=== PATIENT | female | born 1980 | race Caucasian/White ===

== ENCOUNTER 2016-03-22 19:42 | Emergency (ER) | payer BC ==
[2016-03-22 19:48] VITALS: BP 152/88; PULSE 100; RESP 20; TEMP 97.9
--- NOTE | 2016-03-22 20:03 | ED ---
Extremity Problem HPI - General Chief complaint: Extremity Problem,Nontraumatic Stated complaint: left arm pain and swelling Time Seen by Provider: 03/22/16 19:50 Source: patient, RN notes reviewed Mode of arrival: ambulatory Limitations: no limitations - History of Present Illness Initial comments: 35 yo female presents to the emergency department with a chief complaint of left arm swelling. Patient states that this started about 3 weeks ago. She initially saw Dr. french some lymph nodes swollen neck and started on antibiotics. Patient states her swelling has remained constant since then. There is not. The improvement. Patient stated was a throbbing type pain along the arm as well as what she was concerned. Patient states there is no trauma or injury to the arm. Patient states that she is not currently having any other symptoms.Patient denies any recent fever, chills, shortness of breath, chest pain, back pain, abdominal pain, nausea vomiting, numbness or tingling, dysuria or hematuria, constipation or diarrhea, headaches or visual changes, or any other current symptoms. - Related Data Home Medications Medication Instructions Recorded Confirmed No Known Home Medications [No 03/22/16 03/22/16 Known Home Medications] Allergies Allergy/AdvReac Type Severity Reaction Status Date / Time No Known Allergies Allergy Verified 03/22/16 19:48 Review of Systems ROS Statement: Those systems with pertinent positive or pertinent negative responses have been documented in the HPI. ROS Other: All systems not noted in ROS Statement are negative. Past Medical History Past Medical History: No Reported History History of Any Multi-Drug Resistant Organisms: None Reported Past Surgical History: Section, Tubal Ligation Past Psychological History: No Psychological Hx Reported Smoking Status: Never smoker Past Alcohol Use History: None Reported Past Drug Use History: None Reported General Exam - General Exam Comments Initial Comments: General: The patient is awake and alert, in no distress, and does not appear acutely ill. Neck: The neck is supple, there is no tenderness. Cardiovascular: There is a regular rate and rhythm. No murmur, rub or gallop is appreciated. Respiratory: Lungs are clear to auscultation, respirations are non-labored, breath sounds are equal. No wheezes, stridor, rales, or rhonchi. Musculoskeletal: Sensation intact with 2+ pulses of left upper joint. Full range of Motion of left hand left elbow and left shoulder. No redness or erythema. No pedal edema. Tenderness to deep palpation. No lymph nodes palpated. Neurological: CN II-XII intact, There are no obvious motor or sensory deficits. Coordination appears grossly intact. Speech is normal. Skin: Skin is warm and dry and no rashes or lesions are noted. Psychiatric: Normal mood and affect. Limitations: no limitations Course Vital Signs 03/22/16 19:44 Temperature 97.9 F Pulse Rate 100 Respiratory 20 Rate Blood Pressure 152/88 O2 Sat by Pulse 100 Oximetry Medical Decision Making - Medical Decision Making 35-year-old female presents emergency Department chief complaint swelling to left upper extremity. This time patient's ultrasound and she did not shows no sign of deep vein thrombosis. This and we discussed continue follow-up with her doctor out patiently. We discussed return parameters all patient's questions. She states she understood. Patient will be discharged home. Disposition Clinical Impression: Left arm swelling Disposition: HOME SELF-CARE Condition: Stable Instructions: Arthralgia (ED) Additional Instructions: Please use medication as discussed. Please follow up with family doctor if symptoms have not improved over the next two days. Please return to the emergency room if your symptoms increase or worsen or for any other concerns. Referrals: Shanti Bennett DO [Primary Care Provider] - 1-2 days Time of Disposition: 22:10
--- NOTE | 2016-03-22 22:08 | US ---
EXAMINATION TYPE: US venous doppler duplex UE LT DATE OF EXAM: 03/22/2016 9:59 PM COMPARISON: NONE CLINICAL HISTORY: left upper arm pain, swelling, no hx of blood clots, no on any blood thinners. SIDE PERFORMED: Left TECHNOLOGIST IMPRESSION: Left Arm: Appears negative for DVT There is patency demonstrated in the left subclavian axillary brachial basilic and cephalic veins. IMPRESSION: Normal exam. No evidence of deep venous thrombosis in the left arm.
== END 2016-03-22 22:20 | disposition home or self-care (01) ==
LOC: EC 19:42
DX: M79.89 Other specified soft tissue disorders (principal)
CPT/HCPCS: 99283

== ENCOUNTER → 2017-03-18 | Outpatient (CLI) | payer BC ==
--- NOTE | 2017-03-18 07:49 | US ---
EXAMINATION TYPE: US extremity nonvasc mass LT DATE OF EXAM: 03/18/2017 COMPARISON: NONE CLINICAL HISTORY: R22.42 swelling, mass and lump, left arm. Left anterior lower arm/wrist swelling x 1 year Left anterior wrist area of concern: no abnormalities seen by ultrasound at this time Right anterior wrist for comparison: no abnormalities seen by ultrasound at this time IMPRESSION: No significant abnormality to account for the patient's symptoms.
== END | disposition home or self-care (01) ==
LOC: RADUSWWP 07:17
PROVIDERS: ATTEND Family Medicine
DX: R22.32 Localized swelling, mass and lump, left upper limb (principal)

== ENCOUNTER → 2019-05-14 | Outpatient (CLI) | payer BC ==
--- NOTE | 2019-05-14 11:08 | MM ---
Reason for exam: screening (asymptomatic). Baseline mammogram. Physical Findings: Nurse did not find any significant physical abnormalities on exam. MG 3D Screening Mammo W/Cad Bilateral CC and MLO view(s) were taken. XCCL view(s) were taken of the left breast. There are scattered fibroglandular densities. No suspicious abnormality. These results were verbally communicated with the patient and result sheet given to the patient on 05/14/19. ASSESSMENT: Negative, BI-RAD 1 RECOMMENDATION: Routine screening mammogram of both breasts in 1 year.
== END | disposition home or self-care (01) ==
LOC: RADMAMWWP 09:58
PROVIDERS: ATTEND Family Medicine
DX: Z12.31 Encounter for screening mammogram for malignant neoplasm of breast (principal)
CPT/HCPCS: 77063; 77067

== ENCOUNTER → 2021-09-03 | Outpatient (CLI) | payer BC ==
--- NOTE | 2021-09-04 07:47 | MM ---
Reason for Exam: Screening (asymptomatic). Last mammogram was performed 2 year(s) and 3 month(s) ago. Patient History: Menarche at age 12. First Full-Term at age 16. Last menstrual period: 08/13/2021 Risk Values: Kamryn 5 year model risk: 0.5%. NCI Lifetime model risk: 6.5%. Prior Study Comparison: 05/14/2019 Bilateral Screening Mammogram, [facility]. Tissue Density: The breast tissue is heterogeneously dense. This may lower the sensitivity of mammography. Findings: Analyzed By CAD. There is no suspicious group of microcalcifications or new suspicious mass in either breast. Overall Assessment: Negative, BI-RAD 1 Management: Screening Mammogram of both breasts in 1 year. A clinical breast exam by your physician is recommended on an annual basis and results should be correlated with mammographic findings. Electronically signed and approved by: Randy Walls M.D. Radiologis
== END | disposition home or self-care (01) ==
LOC: RADMAMWWP 07:20
PROVIDERS: ATTEND Family Medicine
DX: Z12.31 Encounter for screening mammogram for malignant neoplasm of breast (principal)
CPT/HCPCS: 77063; 77067

== ENCOUNTER → 2023-04-18 | Outpatient (CLI) | payer OTHER ==
--- NOTE | 2023-04-18 16:32 | US ---
EXAMINATION TYPE: US pelvic complete DATE OF EXAM: 04/18/2023 COMPARISON: NONE CLINICAL INDICATION: Female, 42 years old with history of N92.4 EXCESSIVE BLEEDING; Heavy menses. TECHNIQUE: Transabdominal (TA). Transabdominal sonographic images of the pelvis were acquired. Date of LMP: 04/11/2023, EXAM MEASUREMENTS: Uterus: 11.5 x 5.8 x 4.8 cm Endometrial Stripe: 0.4 cm Right Ovary: 3.1 x 1.9 x 1.8 cm Left Ovary: 3.4 x 1.8 x 1.6 cm 1. Uterus: Anteverted Heterogenous. Uterus appears enlarged in size. 2. Endometrium: wnl as visualized 3. Right Ovary: follicles seen 4. Left Ovary: follicles seen 5. Bilateral Adnexa: wnl 6. Posterior cul-de-sac: no free fluid Cervix: wnl IMPRESSION: 1. No evidence for acute process. 2. Endometrium within normal limits for thickness.
--- NOTE | 2023-04-20 08:17 | MM ---
Reason for Exam: Screening (asymptomatic). Last mammogram was performed 1 year(s) and 8 month(s) ago. Patient History: Menarche at age 12. First Full-Term at age 16. Risk Values: Kamryn 5 year model risk: 0.5%. NCI Lifetime model risk: 6.5%. Prior Study Comparison: 05/14/2019 Bilateral Screening Mammogram, [facility]. 09/03/2021 Bilateral MG 3D screening mammo w/cad, [facility]. Tissue Density: There are scattered fibroglandular densities. Findings: Analyzed By CAD. There is no suspicious group of microcalcifications or new suspicious mass. Overall Assessment: Negative, BI-RAD 1 Management: Screening Mammogram of both breasts in [address] [facility] will attempt to contact patient to return for supplemental views and ultrasound if indicated. Patient should continue monthly self-breast exams. A clinical breast exam by your physician is recommended on an annual basis. This exam should not preclude additional follow-up of suspicious palpable abnormalities. Note on Kamryn scores and lifetime risk: 1. A Kamryn score greater than 3% is considered moderate risk. If this is the case, consider specialist referral to assess eligibility for a risk reducing agent. 2. If overall lifetime risk for the development of breast cancer is 20% or higher, the patient may qualify for future screening with alternating mammogram and breast MRI. Electronically signed and approved by: Parish Valenzuela DO
== END | disposition home or self-care (01) ==
LOC: RADMAMWWP 15:20
PROVIDERS: ATTEND Obstetrics & Gynecology
DX: Z12.31 Encounter for screening mammogram for malignant neoplasm of breast (principal); N92.4 Excessive bleeding in the premenopausal period
CPT/HCPCS: 76856; 77063; 77067